=== PATIENT | male | born 1980 | race Caucasian/White ===

== ENCOUNTER 2017-01-19 05:35 | Day surgery (SDC) | payer OTHER ==
[~2017-01-19] VITALS: Ht 177.8 cm; Wt 88.5 kg
--- NOTE | ~2017-01-19 | O ---
[facility] [place] [address] OPERATIVE REPORT Name: DARIANA JACOB Room #: DEP [facility] MRadha.#: [id number] Admission: 01/19/17 Attend Phys: Alirio Mcnair MD Discharge: 01/19/17 Date of : 78 Report #: [id number] THIS REPORT FOR: //name// CC: [place] physician/PCP Alirio Mcnair DATE OF SERVICE: 01/19/2017 PREOPERATIVE DIAGNOSIS: Right knee anterior cruciate ligament tear and medial meniscus tear. POSTOPERATIVE DIAGNOSIS: Right knee anterior cruciate ligament tear and medial meniscus tear. PROCEDURE: Right knee arthroscopy, medial meniscus repair and anterior cruciate ligament reconstruction using [id number] autograft. SURGEON: Alirio Mcnair MD. CARTRIDGE ASSEMBLING MACHINE ADJUSTER: Ritesh León, nurse practitioner. INDICATIONS FOR CARTRIDGE ASSEMBLING MACHINE ADJUSTER: During the course of operation, extensive manipulation, retraction, and limb positioning was required, as well as graft preparation. This was afforded to me by my veterinary assistant. ANESTHETIC: General. INDICATIONS: See hospital H and P. DESCRIPTION OF PROCEDURE: After adequate general anesthesia had been obtained, the patient's right lower extremity was prepped and draped in the usual meticulous sterile fashion. Limb was gravity exsanguinated, and tourniquet was inflated to 350 torr. Superomedial portal was established by first infiltrating with 0.5% Naropin, and then making a stab incision with #11 blade. Inflow cannula was placed. Knee was insufflated with fluid. Anterolateral and anteromedial portals were established utilizing the same technique. Complete diagnostic arthroscopy was performed. Medial meniscus demonstrated a vertical tear through the posterior horn of the meniscus. It was a small tear relatively stable. I elected to go ahead and fix it however. The rasp was used to rasp the surrounding synovium, and then a single Fast-Fix suture was placed because of the tightness of his knee, it was placed in somewhat oblique horizontal fashion. A good fixation was obtained. The intercondylar notch was inspected. ACL was completely torn and PCL intact. Lateral compartment demonstrated a small radial tear of the lateral meniscus, [address] [address] OPERATIVE REPORT Name: DARIANA JACOB Room #: DEP [facility] Bboy.#: [id number] Admission: 01/19/17 Attend Phys: Alirio Mcnair MD Discharge: 01/19/17 Date of : 78 Report #: [id number] this was smoothed with a shaver. The chondral surfaces were preserved. Patellofemoral compartment demonstrated no abnormality. At this time, attention was directed to the graft harvest. An anteromedial incision was made, subQ divided sharply. Paratenon was divided and this layer was retracted, central third of the tendon was harvested with a bone plug from the patella and from the tibia. This was then taken to the backtable and fashioned into a graft. Scope was reintroduced in to the knee. Notchplasty was performed. The ACL stump was debrided. The MiteBitbar guide was used to place the pin from the anteromedial tibia up into the central portion of the ACL footprint. This was then reamed with a 9.5 mm fluted reamer. The bone debris was removed from the tunnel. The [employer] FlipCutter system was used for the femoral side, measurement was obtained proximal to the distal, and we took 43% of this measurement which one being approximately 15 mm distal to the cartilage line. The FlipCutter guide was put into position. A small stab incision on the lateral aspect of the knee, and the FlipCutter drill was drilled in to the femoral ACL footprint. This was then drilled in a retrograde fashion to a depth of 30 mm. All bone debris was removed from both tunnels. At this time, the graft was passed. A BTB TightRope had been placed on the femoral bone plug. It was then advanced into the tunnel, and the button was flipped and the graft hoisted into position. The knee was then taken through 30 cycles of flexion-extension, and then placed in full extension. Traction was placed on the distal portion of the graft, and a screw was then placed, 7 x 23 mm Sharonda screw was placed adjacent to the tibial bone plug. Wounds were all irrigated copiously. The graft was sewed intraarticularly and found to be in good position. The knee was stable to Marcelo testing. The bone from the graft preparation was placed into the patellar defect, and tamped into place, and then parapatellar bursa and paratenon were reapproximated with running 2-0 Vicryl. Subq was closed with 2-0 Monocryl, and skin closed with running subcuticular 2-0 Prolene. Steri-Strips were applied. Portals were closed with 4-0 nylon. The lateral side IT band closure was performed with 2-0 Vicryl, subcu with 2-0 Monocryl, and skin closed with a running subcuticular 2-0 Prolene. Steri-Strips were applied, and sterile compressive dressing was applied. Tourniquet was then deflated. <ELECTRONICALLY SIGNED> By: Alirio Mcnair MD 01/22/17 [id number] Alirio Mcnair MD /nt
[~2017-01-19 05:35] MED LIST: ALLERGY10 M1 PO; BENADRYL25 MG PO
[2017-01-19 11:26] VITALS: BP 130/81
[2017-01-19 14:36] VITALS: BP 130/81
== END 2017-01-19 16:35 | disposition home or self-care (01) ==
LOC: TBA 05:35 → OR 05:35
DX: S83.511A Sprain of anterior cruciate ligament of right knee, initial encounter (principal); M23.221 Derangement of posterior horn of medial meniscus due to old tear or injury, right knee
CPT/HCPCS: 50010; 50101; 50386; 50405; 50624; 50717; 50951; 51038; 51320; 51331; 52001; 54170; 55430; 56524; 56525; 56526; 56530; 62110; 62900; 64037; 64042; 64043; 70005